=== PATIENT | male | born 1975 | race Caucasian/White ===

== ENCOUNTER 2017-07-04 14:52 | Emergency (ER) | payer OTHER ==
--- NOTE | ~2017-07-04 | CR72 ---
[facility] A Service of [facility] RADIOLOGY TEXT RESULTS PATIENT: ALBERT AYERS LOCATION: SED : 79 UNIT #: [id number] AGE: [address]: Brendan Brand MD SEX: M ORDER DR: [id number] [place] [address] [id number] E MR#: [id number] #: [id number] NAME: ALBERT AYERS : 1975 SEX: M STUDY DATE/TIME: 07/04/2017 15:20 UNIT: SED ROOM: STUDY DESCRIPTION: CR Chest Single View Portable Attending Physician: Brendan Brand M.D. Ordering Physician: Brendan Brand M.D. Primary Care Physician: No Primary Care Physician MEDICAL IMAGING REPORT This report is preliminary unless electronic signature is present. EXAM AP portable chest. DATE 07/04/2017 HISTORY Heroin overdose. Cough for 2 days. COMPARISON AP portable chest 06/17/2017 FINDINGS Extensive interstitial thickening, both reticular and reticulonodular, seen throughout both lungs with preponderance of findings in the upper lobes. Bronchiectatic changes with peribronchial thickening is again seen in both upper lobes. There is volume loss in the right chest, with elevation of the minor fissure of the right lung. Airspace disease within the paramediastinal right upper lobe and right apical pleural thickening or scarring, similar to more remote examinations from 04/30/2016. No pneumothorax is visualized. There is a new or increased noncalcified nodularity in the bilateral mid lung zones and left upper lung zone, may represent areas of mucous plugging. IMPRESSION 1. Advanced interstitial reticular and reticulonodular thickening and bronchiectatic changes in both lungs in keeping with the patient's known history of interstitial fibrosis. There is some new noncalcified nodular densities in the bilateral mid lungs and left upper lung zones may represent areas of new mucous plugging or small airways infectious-inflammatory process. [facility] A Service of [facility] RADIOLOGY TEXT RESULTS PATIENT: ALBERT AYERS LOCATION: SED : 79 UNIT #: [id number] AGE: [address]: Brendan Brand MD SEX: M ORDER DR: 2. Chronic-appearing scarring/fibrosis in the paramediastinal right upper lobe and right apex, similar to a more remote study from April 2016. 3. No pneumothorax. Dictated by... Imelda Portillo M.D. THIS IS AN ELECTRONICALLY VERIFIED REPORT Imelda Portillo M.D. at 07/05/2017 7:46 PM [facility]/luis alfredo TD: 07/05/2017 14:42 JOB #: [id number] MEDICAL IMAGING REPORT Page 1 of 1
[~2017-07-04 14:52] MED LIST: ADVAIR 100-501 EAC1 IH; ADVAIR 2501 DISK W/D INH; AMBIEN10 MG PO; AZITHROMYCIN500 MG PO; COMBIVENT INH14.7 GM INH; COMBIVENT MININEB INH; COMBIVENT U/D3 M2 INH; CREON DR 12,001 EAC1 PO; CREON DR 24,001 EACH PO; KALYDECO150 MG; KALYDECO150 MG PO; MEGACE ES625 MG/5 M PO; MEGACE ORA400 MG/10 PO; MULTI-VITAMIN1 TAB PO; PULMOZYME1 MG/ML INH; SUBOXONE 8 MG-1 EAC1 SL; TYLOX 5/500 CAP1 CAP PO; ULTRACE PO; ZITHROMAX; ZYVOX600 MG PO
== END 2017-07-04 17:07 | disposition home or self-care (01) ==
LOC: SED 14:52
DX: T40.1X1A Poisoning by heroin, accidental (unintentional), initial encounter (principal); E84.9 Cystic fibrosis, unspecified; F17.210 Nicotine dependence, cigarettes, uncomplicated; Z98.890 Other specified postprocedural states
CPT/HCPCS: 71010; 94640; 99284

== ENCOUNTER 2017-07-14 17:36 | Emergency (ER) | payer OTHER ==
[~2017-07-14] VITALS: Ht 180.3 cm; Wt 59.0 kg
--- NOTE | ~2017-07-14 | EKG ---
PATIENT: ALBERT AYERS UNIT #: [id number] Ventricular Rate: 108 BPM Atrial Rate: 108 BPM P-R Interval: 134 ms QRS Duration: 96 ms Q-T Interval: 332 ms QTC Calculation(Bezet): 444 ms P [place]: 69 degrees Calculated R [place]: 76 degrees Calculated T [place]: 62 degrees Diagnosis Line: Sinus tachycardia Diagnosis Line: Minimal voltage criteria for LVH, may be normal Diagnosis Line: variant Diagnosis Line: Borderline ECG Diagnosis Line: When compared with ECG of 16-APR-2016 14:26, Diagnosis Line: No significant change was found Diagnosis Line: Confirmed by FADI GUSMAN MD ([id number]) on Diagnosis Line: 07/16/2017 9:47:29 AM INTERPRETING MD: UZMA SEXTON
--- NOTE | ~2017-07-14 | CR72 ---
[facility] A Service of [facility] RADIOLOGY TEXT RESULTS PATIENT: ALBERT AYERS LOCATION: SED : 79 UNIT #: [id number] AGE: [address]: Danii Burgos MD SEX: M ORDER DR: [id number] [address] [address] [id number] E MR#: [id number] Acc #: [id number] NAME: ALBERT AYERS : 1975 SEX: M STUDY DATE/TIME: 07/14/2017 18:23 UNIT: SED ROOM: STUDY DESCRIPTION: CR Chest Single View Portable Attending Physician: Danii Burgos M.D. Ordering Physician: Danii Burgos M.D. Primary Care Physician: Primary Care Physician No MEDICAL IMAGING REPORT This report is preliminary unless electronic signature is present. EXAM Portable chest 07/14/2017 HISTORY 42-year-old male with cough and dyspnea for 1 week. Interstitial fibrosis. COMPARISON Chest 07/04/2017. FINDINGS Frontal chest demonstrates coarse interstitial and fibrotic changes again noted throughout both lungs. This is compatible with known history of interstitial fibrosis. Superimposed acute infiltrate cannot be completely excluded. No pleural effusion. No pneumothorax. Heart size, mediastinum within expected limits. Pulmonary vasculature unremarkable. IMPRESSION Diffuse coarse interstitial opacities throughout both lungs consistent with known history of interstitial fibrosis. Superimposed acute infiltrate is not completely excluded on the examination, but the appearance is not significantly changed from 07/04/2017. Dictated by... Eleuterio Brady M.D. THIS IS AN ELECTRONICALLY VERIFIED REPORT Eleuterio Brady M.D. at 07/15/2017 10:16 AM [facility]/yaneth TD: 07/15/2017 06:15 [facility] A Service [facility] RADIOLOGY TEXT RESULTS PATIENT: ALBERT AYERS LOCATION: SED : 79 UNIT #: [id number] AGE: [address]: Danii Burgos MD SEX: M ORDER DR: NELI #: [id number] MEDICAL IMAGING REPORT Page 1 of 1
[2017-07-14] MEDS ORDERED: SUBOXONE 12 MG1 EACH (17:40)
[2017-07-14] MEDS ORDERED: ZITHROMAX (17:40)
[2017-07-14] MEDS ORDERED: KLONOPIN (17:40)
[2017-07-14] MEDS ORDERED: COMBIVENT U/D3 M1 (17:41)
[2017-07-14 18:19] LABS: BASOPHIL% 0.1 % (0-2.5); EOSINOPHIL# 0.1 X10e3 (0-0.7); EOSINOPHIL% 0.3 % (0.0-7.0); HEMATOCRIT 36.8 % (38.0-50.0); HEMOGLOBIN 11.9 gm/dL (13.0-16.0); LYMPHOCYTE# 0.5 X10e3 (1.0-3.5); LYMPHOCYTE% 1.9 % (17.0-45.0); MEAN CELL VOLUME 77.9 FL (83-96); MEAN CORPUSCULAR HEMOGLOBIN 25.3 PG (28-34); MEAN CORPUSCULAR HGB CONC 32.4 g/dL (30-36); MEAN PLATELET VOLUME 8.2 FL (6.5-11.5); MONOCYTE# 0.4 X10e3 (0-1.0); MONOCYTE% 1.3 % (3.0-12.0); NEUTROPHIL# 26.6 X10e3 (1.5-7.1); NEUTROPHIL% 96.4 % (40-75); PLATELET COUNT 229 X10e3 (140-420); RED BLOOD COUNT 4.72 X10e (3.90-5.60); RED CELL DISTRIBUTION WIDTH 16.1 % (11.0-15.5); WHITE BLOOD COUNT 27.6 X10e3 (4.0-10.5)
[2017-07-14 18:21] LABS: DIFF IND YES
[2017-07-14 18:35] LABS: CALCIUM SERUM 8.2 mg/dL (8.4-10.2); CREATININE SERUM 0.8 mg/dL (0.6-1.4); GLOM FILT RATE Estimated 111.8 mL/min (>60); POTASSIUM 4.2 mmol/L (3.5-5.1)
[2017-07-14 18:41] LABS: ANISOCYTOSIS SL; PLATELET ESTIMATE NORMAL (NORMAL)
[2017-07-14 19:19] LABS: POC - CKMB <1.0 ng/mL (0.0-7.9)
[2017-07-14 19:20] LABS: POC - MYOGLOBIN 39.2 ng/mL (0.0-169.0); POC - TROPONIN <0.05 ng/mL (<=0.05)
== END 2017-07-14 21:15 ==
LOC: SED 17:36
PROVIDERS: Student in an Organized Health Care Education/Training Program
DX: A41.9 Sepsis, unspecified organism (principal); J18.9 Pneumonia, unspecified organism; F19.10 Other psychoactive substance abuse, uncomplicated; F17.200 Nicotine dependence, unspecified, uncomplicated
CPT/HCPCS: 36415; 71010; 80048; 82553; 83605; 83874; 83880; 84484; 85025; 87040; 93005; 96365; 99285; J0696; J1956